=== PATIENT | male | born 1995 | race Two or more races ===

== ENCOUNTER → 2021-07-11 | Emergency (ER) | payer OTHER ==
[~2021-07-11] VITALS: Ht 193 cm; Wt 77.1 kg
[~2021-07-11] MED LIST: DOLOGESIC 500-1 EACH PO
== END | disposition home or self-care (01) ==
LOC: ER 19:40
DX: R53.81 Other malaise (principal); R53.83 Other fatigue

== ENCOUNTER 2022-02-27 18:22 | Emergency (ER) | payer OTHER ==
[~2022-02-27] VITALS: Ht 188 cm; Wt 70.3 kg
== END 2022-02-27 22:11 | disposition home or self-care (01) ==
LOC: ER 18:22
DX: R51.9 Headache, unspecified (principal); Z20.822 Contact with and (suspected) exposure to COVID-19